=== PATIENT | female | born 1975 | race Caucasian/White ===

== ENCOUNTER 2019-11-07 07:32 | Emergency (ER) | payer MEDICARE, SELFPAY ==
[2019-11-07 07:35] VITALS: BP 127/89; PULSE 106; RESP 18; TEMP 36.7; O2SAT 100
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
[2019-11-07] MEDS: Acetaminophen 500 MG TAB 1000 MG PO (08:11)
[2019-11-07] MEDS: oxyCODONE 5 MG TAB PO (08:12)
[2019-11-07 09:39] VITALS: BP 127/89; PULSE 106; RESP 18; TEMP 36.7; O2SAT 100
== END 2019-11-07 09:43 | disposition home or self-care (01) ==
LOC: ER 09:33
PROVIDERS: Emergency Provider Physician Assistant
DX: M54.2 Cervicalgia (principal); R51 Headache; V48.5XXA Car driver injured in noncollision transport accident in traffic accident, initial encounter
CPT/HCPCS: 80307; 99284; 70450; 72125; 81003